=== PATIENT | male | born 1960 | race Caucasian/White ===

== ENCOUNTER → 2024-08-28 | Outpatient (REF) | payer OTHER ==
[~2024-08-28] MED LIST: ASPIRIN325 MG PO; CARVEDILOL12.5 MG PO; FUROSEMIDE40 MG PO; HYDRALAZINE HCL50 MG; LISINOPRIL10 MG PO; LYRICA25 MG PO; METFORMIN HCL500 MG PO; NIFEDICAL XL30 MG PO; NOVOLOG MI100 UNITS/; OMEPRAZOLE40 MG PO; TAMSULOSIN HCL0.4 MG; TIZANIDINE HCL4 MG PO; VICTOZA 2-0.6 MG/0.1 SC
== END ==
LOC: RAD 10:41
PROVIDERS: ATTEND Internal Medicine
DX: I50.22 Chronic systolic (congestive) heart failure (principal)
CPT/HCPCS: 93306